=== PATIENT | male | born 1940 | race Caucasian/White ===

== ENCOUNTER 2020-11-18 07:58 | Outpatient (RCR) | payer OTHER, SELFPAY ==
--- NOTE | 2020-11-18 10:29 | PTOPEVAL ---
Thank you for referring Jerry Mancia to [facility].? The patient is scheduled to be seen for therapy? ____x/week for ___ weeks. Please review, sign, date and return this plan of care HARRY. I agree with and certify that the following plan of care is medically necessary. Referring Physician Date Admitting Provider: Attending Provider: WENDIE BERGMAN Referring Provider: *PT Outpatient Evaluation Start: 11/18/20 08:05 Freq: Status: Active Protocol: Document 11/18/20 08:00 [facility] (Rec: 11/18/20 09:41 [facility] [id number]) Therapy Assessment Status Assessment Status Assessment Status Evaluation Evaluation Information Problem Diagnosis LBP/stenosis Onset 10/31/20 Subjective Information Jerry Mancia is a 80 year Query Text:As Reported By Patient/ old male who [facility] with [facility]BP. He reports that the onset of low back pain started after his second R knee surgery on 08/24/2019. He reports that he was in the hospital after surgery until September 27, 2019; during that time he was primarily lying on his back which caused the pain. Back pain inc w ambulation. He takes extra strength aspirin 3x/day 250mg each from . He lives at home alone and has 3 steps on his porch and 2 steps from his porch into house. He ambulates w a straight cane for short distance. He uses a rollator in house and rollator for outside/community distances that he keeps in his car. In last 2 months has fallen 3 times (says he trips on R foot as it drags when he fatigues) . 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 Prior Level of Function Comments Additional Prior Level of Function Owns a small farm - cows, Comments rabbits; bails hay, plants
--- NOTE | 2020-12-17 10:29 | PTOPEVAL ---
Thank you for referring Jerry Mancia to [facility].? The patient is scheduled to be seen for therapy? ____x/week for ___ weeks. Please review, sign, date and return this plan of care HARRY. I agree with and certify that the following plan of care is medically necessary. Referring Physician Date Admitting Provider: Attending Provider: WENDIE BERGMAN Referring Provider: ORACIO Outpatient Evaluation Start: 11/18/20 08:05 Freq: Status: Active Protocol: Document 12/17/20 09:00 [facility] (Rec: 12/17/20 10:09 [facility] [id number]) Therapy Assessment Status Assessment Status Assessment Status Re-evaluation Evaluation Information Problem Diagnosis LBP/stenosis Onset 10/31/20 Subjective Information Patient reports LBP on this Query Text:As Reported By Patient/ date. He reports that he falls Family approximately 1x/wk but has not fallen yet this week. When he falls, he is typically walking on an uneven surface. Pain Assessment Timing of Pain Assessment Timing of Pain Assessment Pre-Treatment Pain Scale Pain Scale Used Numeric (1 - 10) Self Report Pain Assessment Lower Posterior Back Reported Pain Level 3 Pain Score Pain Score 3: Self Report Interventions Used Interventions Used By Clinicians Activity or ADL's,Education, Exercise Cervical and Lumbar ROM Lumbar ROM Lumbar Flexion Active [place]kle Query Text:Hands to: Lumbar Extension (0-40) 20 Query Text:Active in Degrees Lumbar Lateral Flexion Right (0-40) 25 Query Text:Active in Degrees Lumbar Lateral Flexion Left (0-40) 25 Query Text:Active in Degrees Lateral Rotation Right (0-45) 20 Query Text:Active in Degrees Lateral Rotation Left (0-45) 20 Query Text:Active in Degrees Lumbar ROM 75% of Normal Lower Extremity Muscle Strength Testing Hip Strength Right Hip Flexion Strength 4+ Good + Hip Extension Strength 5 Normal Hip Abduction Strength 4 Good Left Hip Flexion Strength 4+ Good + Hip Extension Strength 5 Normal Hip Abduction Strength 4 Good Knee Strength Right Knee Flexion Strength 4+ Good + Knee Extension Strength 5 Normal Left Knee Flexion Strength 5 Normal Knee Extension Strength 4+ Good + Ankle Strength Right Ankle Dorsiflexion Strength 4 Good Ankle Plantarflexion Strength 4+ Good + Left Ankle Dorsiflexion Strength 4+ Good + Ankle Plantarflexion Strength 4+ Good + Muscle Length Testing Muscle Length Testing Gabrielle
== END 2021-01-05 10:15 | disposition home or self-care (01) ==
LOC: CHSPT 07:58
DX: M51.36 Other intervertebral disc degeneration, lumbar region (principal); M54.5 Low back pain
CPT/HCPCS: 97014; 97110; 97161; 97530; G0283